=== PATIENT | female | born 1970 | race Caucasian/White ===

== ENCOUNTER 2017-05-01 11:59 | Emergency (ER) | payer BC ==
[~2017-05-01] VITALS: Ht 160 cm; Wt 94.3 kg
[~2017-05-01 11:59] MED LIST: HYDR12.55 PO; LOSA50TA6 PO; SNG10 PO
[2017-05-01 12:03] VITALS: TEMP 36.7; Ht 160 cm; Wt 94.3 kg
[2017-05-01] MEDS ORDERED: DiphenhydrAMINE HCL 50 MG/ML VIAL IV STA (12:13)
[2017-05-01] MEDS ORDERED: MoRPHine SULFATE 4 MG/ML 1 ML CARP\\VIAL IV STA (12:13)
[2017-05-01] MEDS ORDERED: SODIUM CHLORIDE 0.9% 1000ML 1,000 ML IV STA (12:13)
[2017-05-01] MEDS ORDERED: PROCHLORPERAZINE 5 MG/ML 2 ML VIAL IV STA (12:13)
[2017-05-01] MEDS ORDERED: KETOROLAC TROMETHAMINE 30 MG/ML VIAL IV STA (12:13)
[2017-05-01] MEDS ORDERED: DEXAMETHASONE SOD INJ 10 MG/ML VIAL IV ONE (12:15)
--- NOTE | 2017-05-01 12:43 | EMERGENCY ROOM VISIT NOTE ---
History Report prepared by Lucaibantonio: Karey Giron Under the Supervision of: Dr. Porfirio White M.D. First contact with patient: 12:08 Chief Complaint: HEADACHE Stated Complaint: MIGRAINE History of Present Illness The patient is a 46 year old female who presents to the Emergency Room with complaints of a constant headache starting 2 days ago. The pain is located behind the right eye radiating towards the back of the right side of head. She has neck pain but denies any neck stiffness. She has worsening pain with exposure to light and sounds. The patient has a history of migraine headaches and reports her current pain to be similar. She reports nausea but denies vomiting. She has been taking sinus headache medication and Excedrin migraine without relief. She also complains of increased shortness of breath starting a few days ago. She has a history of asthma. She reports the asthma medication sometimes exacerbate her migraine headache symptoms. The patient denies runny nose, chest pain, abdominal pain, back pain, or any other complaints. She has chronic lower extremity swelling. She denies any history of diabetes. Source of History: patient Onset: 2 days ago Position: head Modifying Factors (Worsening): other (exposure to light and sounds) Modifying Factors (Relieving): other (sinus headache medication and Excedrin migraine without relief) Associated Symptoms: + neck pain, + SOB, + nausea, No chest pain, No vomiting, No abdominal pain, No back pain Review of Systems See HPI for pertinent positives & negatives. A total of 10 systems reviewed and were otherwise negative. Past Medical & Surgical Medical Problems: (1) Bronchitis (2) Dilation and curettage (3) Headache (4) Hypertension (5) Pneumonia Family History FHx: heart disease Social History Smoking Status: Never Smoker Alcohol Use: none Marital Status: Housing Status: lives with significant other Current/Historical Medications Scheduled Hydrochlorothiazide (Hydrochlorothiazide), 12.5 MG PO DAILY Losartan Potassium (Cozaar), 50 MG PO DAILY Methylprednisolone (Medrol Dosepak), 1 PKT PO UD Montelukast Sod (Montelukast Sodium), 10 TAB PO DAILY Allergies Coded Allergies: Iodinated Contrast Media (Verified Allergy, Unknown, HIVES/ITCHING, ) Physical Exam Vital Signs Date Time Temp Pulse Resp B/P (MAP) Pulse Ox O2 Delivery O2 Flow Rate FiO2 05/01/17 14:01 73 17 119/87 98 05/01/17 12:52 58 17 137/84 100 Room Air 05/01/17 12:03 36.7 80 18 151/97 97 Room Air Physical Exam GENERAL: Patient is well appearing and in mild distress. HEAD: No acute trauma, normocephalic atraumatic ENT: Mucous membranes moist, no nasal congestion. EYES: Equal/Reactive Bilaterally, No scleral icterus, Normal ROM NECK: No nuchal rigidity, no meningismus, trachea is midline, full ROM LUNGS: No dyspnea. Clear to auscultation and equal bilaterally. No wheeze, no rhonchi. HEART: Regular rate and rhythm. No murmurs, rubs, gallops appreciated. ABDOMEN: Soft, nontender, bowel sounds positive, no masses appreciated, no peritonitis. BACK: No midline tenderness, no CVA tenderness EXTREMITIES: Normal motion all extremities, no cyanosis, no edema. NEUROLOGIC: Awake, Alert, Oriented, no acute motor or sensory deficits, no focal weakness, cranial nerves grossly intact. SKIN: No rash, no jaundice, no diaphoresis. Medical Decision & Procedures Medications Administered Medications (Trade) Dose Ordered Sig/Matthew Route Start Time Stop Time Status Last Admin Dose Admin Prochlorperazine Edisylate (Compazine Inj) 10 mg NOW STAT IV 05/01/17 12:13 05/01/17 12:14 DC 05/01/17 12:29 10 MG Diphenhydramine HCl (Benadryl Inj) 50 mg NOW STAT IV 05/01/17 12:13 05/01/17 12:14 DC 05/01/17 12:27 50 MG Morphine Sulfate (MoRPHine SULFATE INJ) 4 mg NOW STAT IV 05/01/17 12:13 05/01/17 12:14 DC 05/01/17 12:32 4 MG Ketorolac Tromethamine (Toradol Inj) 30 mg NOW STAT IV 05/01/17 12:13 05/01/17 12:14 DC 05/01/17 12:33 30 MG Dexamethasone Sodium Phosphate (Decadron Inj) 10 mg NOW ONCE IV 05/01/17 12:15 05/01/17 12:16 DC 05/01/17 12:28 10 MG Sodium Chloride 1,000 ml @ 999 mls/hr Q1H1M STAT IV 05/01/17 12:13 05/01/17 13:13 DC 05/01/17 12:26 999 MLS/HR ED Course 1208: The patient was evaluated in room B12B. A complete history and physical exam was performed. 1213: Sodium Chloride 1000 ml @ 999 mls/hr IV, Toradol Inj 30 mg IV, Morphine Sulfate 4 mg IV, Benadryl Inj 50 mg IV, Compazine Inj 10 mg IV 1215: Decadron Inj 10 mg IV 1311: I reevaluated the patient who feels better. 1358: Reevaluated the patient. Her headache has completely resolved. Discussed results and discharge instructions: She verbalized understanding and agreement. The patient is ready for discharge. Medical Decision Differential: Headache, Migraine, Cluster Headache, Seizure, Meningitis, Sinusitis, CO exposure, ICH/SAH, Infectious, Tumor, Sinus Thrombosis, Arterial Dissection, amongst other pathologies entertained. Medication Reconciliation: I attest that I have personally reviewed the patient 's current medication list. Blood pressure screening: Patient was found to have an elevated blood pressure and was referred to their primary doctor for recheck and further treatment. 46 yr old female arrives with complaint of migraine similar to previous along with some mild increase in her seasonal allergies. No evidence meningitis by examination and otherwise she is stable, looks well and is not septic. No neuro deficits and not sudden in onset. No evidence dissection nor thrombosis. She was given above with resolution of headache. With allergies and prolonged migraine will treat with steroids as outpatient as well, which may also help her asthma a bit, though currently without evidence of wheezing, etc. Stable and comfortable with discharge. Will follow up with PCP regarding hypertension. Impression Primary Impression: Headache Additional Impressions: Migraine Hypertension Sinus congestion Scribe Attestation The scribe's documentation has been prepared under my direction and personally reviewed by me in its entirety. I confirm that the note above accurately reflects all work, treatment, procedures, and medical decision making performed by me. Departure Information Dispostion Home / Self-Care Prescriptions Methylprednisolone (MEDROL DOSEPAK) 4 Mg Philip 1 PKT PO UD for 6 Days, #1 PKT Prov: Porfirio White M.D. 05/01/17 Referrals Kitty Beck D.O. (PCP) Forms HOME CARE DOCUMENTATION FORM, IMPORTANT VISIT INFORMATION Patient Instructions My [facility] Additional Instructions Keep well hydrated and avoid excessive exertion over next few days. Return if worsening headache, fevers, neck stiffness, altered mental status, increased vomiting, or other concerns. Your blood pressure was elevated during this visit. This is quite common in many people who are being evaluated in the Emergency Department for many reasons. However, it is important that you have your Primary Care Provider recheck your blood pressure and discuss whether treatment will be needed. 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 If you develop severe headaches, chest pain, weakness in arms or legs, or other concerning symptoms call 911. Problem Qualifiers
[2017-05-01] MEDS ORDERED: METH4PAK PO (13:20)
[2017-05-01 14:01] VITALS: BP 119/87; PULSE 73; O2SAT 98
[2017-10-11] MEDS ORDERED: CEPH500C2 PO (13:03)
[2017-10-11] MEDS ORDERED: HYDR-5688 PO (13:03)
== END 2017-05-01 14:02 | disposition home or self-care (01) ==
LOC: C.EDB 12:00
DX: R51 Headache (principal); G43.909 Migraine, unspecified, not intractable, without status migrainosus; I10 Essential (primary) hypertension; R09.81 Nasal congestion; Z82.49 Family history of ischemic heart disease and other diseases of the circulatory system

== ENCOUNTER → 2017-09-06 | Outpatient (CLI) | payer BC | END | disposition home or self-care (01) | LOC: C.PAPS 11:26 | PROVIDERS: ATTEND Physician Assistant | DX: Z01.419 Encounter for gynecological examination (general) (routine) without abnormal findings (principal) ==

== ENCOUNTER → 2017-10-11 | Day surgery (SDC) | payer BC ==
[2017-09-20 15:20] VITALS: Ht 158.8 cm; Wt 90.9 kg
[~2017-10-11] VITALS: Ht 158.8 cm; Wt 90.9 kg
[~2017-10-11] MED LIST changes: +ATROPINE SULFATE 0.1 MG/ML 5ML SYR IV PRN; +BUPIVACAINE 0.5 % 5 MG/1 ML MPF 30ML VIAL ONE; +CEFAZOLIN 2000MG IV PUSH 10 ML IV SCH; +CEPH500C2 PO; +DEXAMETHASONE SOD INJ 4 MG/ML VIAL ONE; +EpHEDrine SULFATE INJ 50 MG/ML AMP IV PRN; +FENTANYL CITRATE INJ 50 MCG/1 ML 2 ML VIAL IV PRN; +FENTANYL CITRATE INJ 50 MCG/1 ML 2 ML VIAL ONE; +HYDR-5688 PO; +HYDROCODONE/ACETAMOPHEN 5/325MG TAB PO PRN; +LACTATED RINGER'S 1000ML 1,000 ML IV SCH; +LIDOCAINE HCL 2% 2 ML VIAL (20MG/ML) ONE; +MIDAZOLAM HCL 1 MG/ML 2ML VIAL ONE; +ONDANSETRON INJ 2 MG/ML 2 ML VIAL IV PRN; +ONDANSETRON INJ 2 MG/ML 2 ML VIAL ONE; +PROPOFOL IV EMULSION 10 MG/ML 20 ML VIAL IV ONE; +SCOPOLAMINE 1.5 MG TDSY TD ONE; +SODIUM CHLORIDE 0.9% 1000ML 1,000 ML IV SCH
--- NOTE | 2017-10-11 12:08 | History & Physical Bridge - SC ---
H&P Re-Evaluation Bridge Note: I have examined the patient, reviewed the History & Physical and in the interval since the performance of the History & Physical I have noted the following changes of clinical significance: No changes noted
--- NOTE | 2017-10-11 13:05 | Discharge Instructions-SurgCtr ---
Discharge Instructions Date of Service Oct 11, 2017. Visit Reason for Visit: Umbilical Hernia Discharge Discharge Diagnosis / Problem: umbilical hernia repair Discharge Goals Goal(s): Decrease discomfort, Improve function, Improve disease control Activity Recommendations Activity Limitations: as noted below Lifting Limitations: no more than 25 pounds Exercise/Sports Limitations: until after follow-up appointment May Resume Sexual Activity: when tolerated Shower/Bathe: tomorrow Driving or Machine Use: resume 1 day after discharge SPECIAL CARE INSTRUCTIONS: * Cover incisions and change daily for comfort/drainage. * May use ibuprofen for pain as tolerated. * Expect some swelling and bruising. Call your doctor if: * Temperature above 101 degrees * Pain not relieved by pain medicine ordered * There is increased drainage or redness from any incision * You have any unanswered questions or concerns [phone]. FOLLOW UP VISIT: If not already scheduled, please call the office for a follow-up visit. for next week- some suture removal OFFICE PHONE NUMBER: Dr. Cook Office Anesthesia . Post Anesthesia Instructions: If you have had General Anesthesia or IV Sedation: * Do not drive today. * Resume driving when surgeon permits. * Do not make important decisions or sign legal documents today. * Call surgeon for: 1. Temperature elevations greater than 101 degrees F. 2. Uncontrollable pain. 3. Excessive bleeding. 4. Persistent nausea and vomiting. 5. Medication intolerance (nausea, vomiting or rash). * For nausea and vomiting use only clear liquids such as: tea, soda, bouillon until nausea subsides, then gradually increase diet as tolerated. * If you have any concerns or questions, call your surgeon's office. If physician is unavailable and it is an emergency, call 911 or go to the nearest emergency room. . Diet Recommendations Home Diet: resume previous diet Procedures Procedures Performed: Umbilial Hernia Open Repair Pending Studies Studies pending at discharge: no Work Instructions Return To Work: 1 week Medical Emergencies . Who to Call and When: Medical Emergencies: If at any time you feel your situation is an emergency, please call 911 immediately. . Non-Emergent Contact Non-Emergency issues call your: Primary Care Provider, Surgeon . . "Provider Documentation" section prepared by Bryan Cook. .
--- NOTE | 2017-10-11 13:06 | [facility] Operative Report ---
Operative Report Operative Date Oct 11, 2017. Pre-Operative Diagnosis Umbilical Hernia Post-Operative Diagnosis same Procedure(s) Performed Umbilial Hernia Open Repair Surgeon Dr Cook Command Post Craftsman Surgeon(s) ELICIA Marroquin Estimated Blood Loss 5 ml Findings 1.5 cm defect scar w/n sac- infarcted tissue Specimens none Anesthesia gen Complication(s) None Disposition Recovery Room / PACU I attest to the content of the Intraoperative Record and any orders documented therein. Any exceptions are noted below.
--- NOTE | 2017-10-11 13:35 | OPERATIVE REPORT ---
DATE OF OPERATION: 10/11/2017 NAME OF OPERATION: Open umbilical hernia repair. PREOPERATIVE DIAGNOSIS: Umbilical hernia. POSTOPERATIVE DIAGNOSIS: Same. STAFF SURGEON: Dr. Bryan Cook. RETURN TO FACTORY CLERK: Michelet Schaefer PA-C ANESTHESIA: General LMA. FINDINGS: The patient had a 1.5-cm hernia defect and what appeared to be scar tissue from some infarcted tissue within the hernia sac. DESCRIPTION OF PROCEDURE: The patient was brought into the operating room and placed on the operating table in the supine position. Her abdomen was prepped and draped in the usual fashion around the umbilicus. 0.5% plain Marcaine was used to anesthetize the skin and subcutaneous tissue just below the umbilicus. Incision was made, carrying dissection down, and identifying the sac. The sac had tissue most likely infarcted and longstanding nature and developing scar tissue. There were some small infarcted vessels. The skin overlying this area was somewhat bruised. The tissue was taken down. The fascia identified. The umbilicus detached from the fascia. The hernia defect was 1.5 cm in diameter. The sac and contents were sent for routine pathology. The defect was closed using interrupted 0 Ethibond suture. The deep tissue was then irrigated and reapproximated using 2-0 plain suture. The umbilicus was reattached to the subcutaneous tissue using 2-0 chromic suture and the skin reapproximated using 5-0 Prolene suture. Dressing applied and the patient transferred to recovery room in stable condition. I attest to the content of the Intraoperative Record and any orders documented therein. Any exception s are noted below.
[2017-10-11 13:54] VITALS: TEMP 36.6
--- NOTE | 2017-10-11 14:07 | Anesthesia Progress Nt - [facility] ---
Anesthesia Post Op Note Date & Time Oct 11, 2017 at 14:07 Vital Signs Pain Intensity: 1 Vital Signs Past 12 Hours Date Time Temp Pulse Resp B/P (MAP) Pulse Ox O2 Delivery O2 Flow Rate FiO2 10/11/17 13:54 36.6 88 16 114/77 (89) 95 Room Air 10/11/17 13:43 103 13 10/11/17 13:43 101 13 96 10/11/17 13:41 136/88 10/11/17 13:38 37.1 101 16 136/88 96 Mask 10/11/17 13:38 103 22 10/11/17 13:38 104 22 96 10/11/17 13:37 102 15 95 10/11/17 13:37 103 15 10/11/17 13:36 118/85 10/11/17 13:32 105 16 10/11/17 13:32 105 16 95 10/11/17 13:31 126/79 10/11/17 13:27 105 97 10/11/17 13:27 105 10/11/17 13:25 128/81 10/11/17 13:22 110 14 100 10/11/17 13:22 110 14 10/11/17 13:21 123/73 10/11/17 13:17 110 13 100 10/11/17 13:17 107 13 10/11/17 13:16 133/82 10/11/17 13:12 112 13 10/11/17 13:12 113 13 100 10/11/17 13:11 123/77 10/11/17 13:08 115/80 10/11/17 13:07 37.6 116 16 115/80 100 Mask 10 10/11/17 11:29 36.7 81 16 110/80 (90) Room Air Notes Mental Status: alert / awake / arousable, participated in evaluation Pt Amnestic to Procedure: Yes Nausea / Vomiting: adequately controlled Pain: adequately controlled Airway Patency, RR, SpO2: stable & adequate BP & HR: stable & adequate Hydration State: stable & adequate Anesthetic Complications: no major complications apparent
[2017-10-11 14:18] VITALS: BP 121/82; PULSE 91; O2SAT 96
== END | disposition home or self-care (01) ==
LOC: X.SURG 10:40
PROVIDERS: ATTEND Surgery
DX: K42.9 Umbilical hernia without obstruction or gangrene (principal)

== ENCOUNTER → 2017-10-25 | Outpatient (CLI) | payer BC ==
[~2017-10-25] MED LIST changes: -ATROPINE SULFATE 0.1 MG/ML 5ML SYR IV PRN; -BUPIVACAINE 0.5 % 5 MG/1 ML MPF 30ML VIAL ONE; -CEFAZOLIN 2000MG IV PUSH 10 ML IV SCH; -DEXAMETHASONE SOD INJ 4 MG/ML VIAL ONE; -EpHEDrine SULFATE INJ 50 MG/ML AMP IV PRN; -FENTANYL CITRATE INJ 50 MCG/1 ML 2 ML VIAL IV PRN; -FENTANYL CITRATE INJ 50 MCG/1 ML 2 ML VIAL ONE; -HYDROCODONE/ACETAMOPHEN 5/325MG TAB PO PRN; -LACTATED RINGER'S 1000ML 1,000 ML IV SCH; -LIDOCAINE HCL 2% 2 ML VIAL (20MG/ML) ONE; -MIDAZOLAM HCL 1 MG/ML 2ML VIAL ONE; -ONDANSETRON INJ 2 MG/ML 2 ML VIAL IV PRN; -ONDANSETRON INJ 2 MG/ML 2 ML VIAL ONE; -PROPOFOL IV EMULSION 10 MG/ML 20 ML VIAL IV ONE; -SCOPOLAMINE 1.5 MG TDSY TD ONE; -SODIUM CHLORIDE 0.9% 1000ML 1,000 ML IV SCH
--- NOTE | 2017-10-26 07:36 | MAMMOGRAPHY REPORT ---
BILATERAL DIGITAL DIAGNOSTIC MAMMOGRAM TOMOSYNTHESIS WITH CAD AND TARGETED BILATERAL ULTRASOUND: 10/25 CLINICAL HISTORY: 47-year-old woman presents with focal pain in the left breast. Also due for bilate ral screening mammograms. TECHNIQUE: Bilateral breast tomosynthesis in addition to standard 2D mammography was performed. Curre nt study was also evaluated with a Computer Aided Detection (CAD) system. COMPARISON: Comparison is made to exam dated: 06/19/2014 mammogram - [facility]. BREAST COMPOSITION: There are scattered areas of fibroglandular density in both breasts. FINDINGS: A square shape a marker was placed on the skin overlying the lower inner middle one third o f the left breast. No obvious new mass, asymmetry, area of distortion or suspicious calcifications a re seen in the area of pain within the left breast or elsewhere throughout the remainder of the visua lized left breast. There is stable focal asymmetry in the 3:00 anterior left breast and a few benign -appearing calcifications. There is a newly visualized 3 mm circumscribed mass in the approximate 9:00 posterior right breast an d other scattered nodularity throughout the right breast that is generally stable compared to prior m ammograms. No suspicious spiculated or irregular mass, asymmetry, area of distortion or calcificatio ns are seen in the right breast. Targeted ultrasound was performed in the area of pain pointed out by the patient in the left breast, approximate 7:00, 8:00 and 9:00 axes, 9 cm from the nipple. On ultrasound, sonographically normal ti ssue is seen without a suspicious solid or cystic mass. Additional scanning was performed in the lat eral right breast to assess for the small 3 mm mass newly visualized mammographically. No discrete s olid or cystic mass was identified from the approximate 11:00 to 7:00 axes. Although this mass has a benign appearance given the small size and circumscribed borders, given that it was not identified s onographically, a short interval follow-up right diagnostic tomosynthesis mammogram and possible repe at ultrasound is recommended to ensure stability in 6 months. IMPRESSION: ACR-BI-RADS CATEGORY 3: PROBABLY BENIGN, TARGETED ULTRASOUND ACR-BI-RADS CATEGORY 3: PRO BABLY BENIGN 1. No suspicious mammographic or targeted sonographic evidence of malignancy or other suspicious abn ormality seen in the left breast to explain the focal pain in the lower inner quadrant. Clinical fol low-up is recommended for the pain and also recommend routine left breast mammography in one year. 2. Newly visualized circumscribed 3 mm mass in the approximate 9:00 posterior right breast, without sonographic correlate identified. Although this could represent a benign cyst given the benign mammo graphic appearance, a short interval follow-up right diagnostic tomosynthesis mammogram and possible repeat ultrasound is recommended to ensure stability in 6 months. These results and recommendations were discussed with the patient at the time of the exam. She tenta tively scheduled the right breast follow-up appointment prior to leaving our department. Approximately 10% of breast cancers are not detected with mammography. A negative mammographic report should not delay biopsy if a clinically suggestive mass is present. Florecita Lock M.D. ay/:10/25/2017 15:33:05 Taste Tester: Bonnie JIMENEZ(Talat)(Efrain), [facility] letter sent: Follow Up Recommended 3 BI-RADS Code: ACR-BI-RADS Category 3: Probably Benign Ultrasound BI-RADS: ACR-BI-RADS Category 3: Pr obably Benign
== END | disposition home or self-care (01) ==
LOC: C.MAMM 08:54
PROVIDERS: ATTEND Physician Assistant
DX: N64.4 Mastodynia (principal); Z91.040 Latex allergy status; N63.10 Unspecified lump in the right breast, unspecified quadrant

== ENCOUNTER → 2018-06-26 | Outpatient (CLI) | payer OTHER ==
[~2018-06-26] MED LIST changes: -CEPH500C2 PO; +GADAVIST IV PRN; -HYDR-5688 PO
--- NOTE | 2018-06-26 07:31 | DIAGNOSTIC IMAGING REPORT ---
MRI OF THE BRAIN WITHOUT AND WITH IV CONTRAST CLINICAL HISTORY: Arachnoid cyst. COMPARISON STUDY: MRI of the brain March 31, [address] April 27, 2018. TECHNIQUE: Utilizing a 1.5 Marisela magnet and dedicated coil, multiplanar, multiecho imaging of the brain was performed pre and postcontrast administration. IV administration of 10 mL of Gadavist contrast was uneventful. FINDINGS: There are no foci of restricted diffusion. No acute intracranial hemorrhage is present. Ventricular system is normal. Flow-voids for the major intracranial vessels are present. There is no intracranial mass or pathologic enhancement. A few punctate white matter T2 hyperintense foci are noted and suggest minimal small vessel disease or sequela of migraine headaches. There is minimal signal abnormality within the cerebellar vermis. Patient is status post suboccipital craniectomy. A retrocerebellar CSF signal intensity abnormality is unchanged since head CT of April 27, 2018 and mildly increased in size since MRI of March 31, 2010. This measures 4.5 x 5.1 x 1.9 cm. On MRI of March 31, 2010, this measured 3.3 x 3.8 x 1.6 cm. A CSF signal intensity focus along the quadrigeminal plate has decreased in size since previous MRI. This now measures 2.8 x 2.5 x 3.5 cm. It previously measured 4.1 x 4.8 x 3.5 cm. IMPRESSION: 1. No acute intracranial findings. 2. Status post suboccipital craniectomy. No change since head CT of April 27, 2018. Interval decrease in size of a suspected arachnoid cyst along the quadrigeminal plate since MRI of March 31, 2010. Mild increase in size of a retrocerebellar CSF signal intensity focus since previous MRI. This may represent post surgical change or an arachnoid cyst. Electronically signed by: Jovan Haney M.D. 06/26/2018 7:30 AM Dictated Date/Time: 06/26/2018 7:16 AM
== END | disposition home or self-care (01) ==
LOC: C.MRI 06:23
PROVIDERS: ATTEND Family Medicine
DX: G93.0 Cerebral cysts (principal)

== ENCOUNTER → 2018-06-26 | Outpatient (CLI) | payer OTHER ==
[~2018-06-26] MED LIST changes: -GADAVIST IV PRN
--- NOTE | 2018-06-26 15:12 | MAMMOGRAPHY REPORT ---
UNILATERAL RIGHT DIGITAL DIAGNOSTIC MAMMOGRAM TOMOSYNTHESIS WITH CAD: 06/26/2018 CLINICAL HISTORY: 47-year-old woman presents for follow-up in the right breast for a small, 3 mm circ umscribed round to oval mass in the 9:00 posterior breast, without sonographic correlate identified. TECHNIQUE: Right breast CC and MLO 2D and tomosynthesis images were obtained. Current study was also evaluated with a Computer Aided Detection (CAD) system. COMPARISON: Comparison is made to exams dated: 10/25/2017 mammogram and 06/19/2014 mammogram - [facility]. BREAST COMPOSITION: The tissue of right breast is almost entirely fatty. FINDINGS: There is persistence of an oval versus round circumscribed 2.8 mm mass in the approximate 9 :00 posterior right breast, that is not changed in size or appearance since the 10/25/2017 mammograms. No associated calcification, angular borders or spiculation. There is other stable nodularity in t he lateral right breast. Overall, no suspicious spiculated mass, architectural distortion, asymmetry or suspicious calcifications identified in the right breast. This circumscribed 2.8 mm mass most li brittany represents a cyst/benign fibrocystic change given 6 months of stability, but another short inter marcell follow-up right mammogram and possible ultrasound is recommended to ensure longer stability. IMPRESSION: ACR-BI-RADS CATEGORY 3: PROBABLY BENIGN 1. Stable size and mammographic appearance of a benign-appearing circumscribed round to oval 2.8 mm mass in the 9:00 posterior right breast. Another six-month follow-up right diagnostic mammogram and possible ultrasound is recommended to ensure longer stability. Annual bilateral mammography will als o be due at that time. These results and recommendations were discussed with the patient at the time of the exam. Some breast cancers are not detected with mammography. A negative mammographic report should not shahid y biopsy if a clinically suggestive mass is present. Florecita Lock M.D. ay/:06/26/2018 12:09:02 Aircraft Engine Technician: Bonnie Reynoso, [facility] letter sent: Follow Up Recommended 3 BI-RADS Code: ACR-BI-RADS Category 3: Probably Benign
== END | disposition home or self-care (01) ==
LOC: C.MAMM 11:22
PROVIDERS: ATTEND Obstetrics & Gynecology
DX: N63.10 Unspecified lump in the right breast, unspecified quadrant (principal); R92.8 Other abnormal and inconclusive findings on diagnostic imaging of breast

== ENCOUNTER 2018-07-16 09:56 | Emergency (ER) | payer OTHER ==
[~2018-07-16] VITALS: Ht 160 cm; Wt 101.0 kg
[2018-07-16 09:58] VITALS: TEMP 36.8; Ht 160 cm; Wt 101.0 kg
[2018-07-16] MEDS ORDERED: KETOROLAC TROMETHAMINE 30 MG/ML VIAL IV STA (10:24)
[2018-07-16] MEDS ORDERED: DiphenhydrAMINE HCL 50 MG/ML VIAL IV STA (10:24)
[2018-07-16] MEDS ORDERED: ONDANSETRON INJ 2 MG/ML 2 ML VIAL IV STA (10:24)
[2018-07-16] MEDS ORDERED: SODIUM CHLORIDE 0.9% 1000ML 1,000 ML IV STA (10:24)
[2018-07-16] MEDS ORDERED: PROCHLORPERAZINE 5 MG/ML 2 ML VIAL IV STA (10:24)
[2018-07-16] MEDS ORDERED: DEXAMETHASONE **PF** INJ 10 MG/ML VIAL IV ONE (10:30)
[2018-07-16] MEDS ORDERED: DEXAMETHASONE SOD INJ 10 MG/ML VIAL ONE (10:35)
--- NOTE | 2018-07-16 11:45 | EMERGENCY ROOM VISIT NOTE ---
ED Visit Note First contact with patient: 10:02 CHIEF COMPLAINT: Migraine headache times 2-1/2 days HISTORY OF PRESENT ILLNESS: Patient is a 47-year-old female with past medical history she is significant for hypertension, known arachnoid cysts, followed by neurosurgery, and migraine disorder, among other medical problems who presents the emergency department for evaluation of a migraine headache that started about 2 half days ago. She could feel the headache coming on Tuesday evening and then when she woke up on Tuesday the migraine was full-blown. She reports a right periorbital headache that radiates to the occipital area with associated nausea, vomiting, photo and phonophobia. Vomiting has been fairly persistent, and she is unable to keep anything down even medications at this point. She has Maxalt at home that she has tried without relief. Patient states that this is typical of her usual migraine phenomenon, and she knows that once the migraine lasts this long she needs to come to the emergency department for further workup treatment. Patient had an MRI performed a few weeks ago, and is scheduled to see her neurosurgeon at [facility] on . Patient denies upper respiratory symptoms, fever or chills. No difficulty with balance, speech or coordination. No numbness, tingling or weakness of the extremities. REVIEW OF SYSTEMS: Review of systems as per HPI. All other systems reviewed were negative. 10 systems reviewed. PMH: Electronic medical records are reviewed and summarized as above/below. See Problem List. SOCIAL HISTORY: Patient lives at home with her spouse. Non-smoker.. PHYSICAL EXAM: Vital Signs: Reviewed Nurse's notes. General Appearance: Patient is an uncomfortable appearing 47-year-old female who is awake alert and laying in a darkened room in mild distress due to her stated complaint. Her was at the bedside. Eyes: Pupils equal round reactive to light extraocular muscles are intact, no proptosis, mild photophobia ENT: Oropharynx is clear, mucous membranes are moist, tympanic membranes are clear bilaterally, no sinus or dental tenderness Neck: Supple, no cervical lymphadenopathy, no meningismus Heart: Regular rate and rhythm, S1 and S2 Lungs: Clear to auscultation bilaterally, no wheezes Rales or rhonchi, no increased work of breathing Abdomen: Soft nontender nondistended. Normal active bowel sounds. No rebound. No guarding. Back: No midline tenderness to palpation. : No CVA tenderness to palpation. Skin: Warm, no diaphoresis, no rashes. Extremities: No cyanosis, clubbing, or edema Neurologic: Patient is awake alert, and oriented x 3. Cranial nerves 2-12 are grossly intact. Motor 5 out of 5 strength bilateral upper extremities and lower extremities. No gross sensory deficits. Reflexes are 2+ throughout. EMERGENCY DEPARTMENT COURSE: The patient was seen and evaluated as above. Her MRI 3 weeks ago was reviewed by myself. She presents the emergency department for evaluation of a migraine headache. Migraine is consistent with her normal headache phenomenon. She has a benign neurologic exam. IV lock was initiated and she was treated with a liter bolus of normal saline solution, Zofran 4 mg, Compazine 10 mg, Benadryl 50 mg, Decadron 10 mg and Toradol 30 mg IV. She was observed in the emergency department, and reassessed after roughly 1 hour at which point she reported that she was feeling much improved, rating her headache a 0/10. Patient was educated on the worrisome signs or symptoms for which she should return to the emergency department, otherwise was advised to follow-up with her primary care provider and/or neurologist and with her neurosurgeon as she has scheduled in a few weeks. Patient was discharged home with her spouse in good condition. Differential includes: acute intracranial bleed, meningitis, encephalitis, mass or mass effect, sinusitis, infection, migraine, tumor, headache, temporal arteritis and carbon monoxide exposure. Blood pressure screening: Patient was found to have a slightly elevated blood pressure due to circumstances. I do not believe that the patient requires hypertension monitoring. Medication reconciliation: I attest that I have personally reviewed the patient' s current medication list. Patient was reviewed in the [facility] Prescription Drug Monitoring Program, and there were no red flags noted. Problem List Medical Problems: (1) Arachnoid cyst Status: Chronic (2) Asthma, Unspecified Status: Chronic (3) Bronchitis Status: Resolved (4) Headache Status: Resolved (5) Hypertension Status: Chronic (6) Migraine Status: Chronic (7) Ovarian Cyst Nec/Nos Status: Chronic (8) Pneumonia Status: Resolved (9) Sinus congestion Status: Resolved Surgical Problems: (1) Dilation and curettage Status: Resolved (2) History of brain surgery Status: Resolved Current/Historical Medications Scheduled Hydrochlorothiazide (Hydrochlorothiazide), 25 MG PO QAM Losartan Potassium (Cozaar), 50 MG PO QAM Montelukast Sod (Montelukast Sodium), 10 TAB PO QAM Allergies Coded Allergies: Iodinated Diagnostic Agents (Verified Allergy, Intermediate, HIVES/ITCHING , 07/16/18) MRI Vital Signs Date Time Temp Pulse Resp B/P (MAP) Pulse Ox O2 Delivery O2 Flow Rate FiO2 07/16/18 11:55 85 16 138/91 96 07/16/18 09:58 36.8 84 18 156/99 97 Room Air Medications Administered Medications (Trade) Dose Ordered Sig/Matthew Route Start Time Stop Time Status Last Admin Dose Admin Sodium Chloride 1,000 ml @ 999 mls/hr Q1H1M STAT IV 07/16/18 10:24 07/16/18 11:24 DC 07/16/18 10:48 999 MLS/HR Ketorolac Tromethamine (Toradol Inj) 30 mg NOW STAT IV 07/16/18 10:24 07/16/18 10:26 DC 07/16/18 10:45 30 MG Diphenhydramine HCl (Benadryl Inj) 50 mg NOW STAT IV 07/16/18 10:24 07/16/18 10:26 DC 07/16/18 10:45 50 MG Prochlorperazine Edisylate (Compazine Inj) 10 mg NOW STAT IV 07/16/18 10:24 07/16/18 10:26 DC 07/16/18 10:46 10 MG Ondansetron HCl (Zofran Inj) 4 mg NOW STAT IV 07/16/18 10:24 07/16/18 10:26 DC 07/16/18 10:45 4 MG Dexamethasone Sodium Phosphate (Decadron Inj) 10 mg STK-MED ONCE .ROUTE 07/16/18 10:35 07/16/18 10:36 DC 07/16/18 10:46 10 MG Departure Information Impression Primary Impression: Migraine Referrals Kitty Beck D.O. (PCP) Patient Instructions My [facility] Additional Instructions DO NOT drive, drink alcohol, operate machinery, or perform dangerous activities today. You were given medications in the ER that can affect your ability to safely function or operate a vehicle. Rest today in a quiet, peaceful, dark environment and get a full 8-10 hrs of sleep tonight. Avoid loud noises, smoke/smoking, alcohol, bright lights, stress, or physical exertion today to minimize the chance the headache may return. Continue current medications. Return to the ER for passing out, worsening headache, vision problems, neck stiffness/pain, fevers, vomiting, worsening of your condition, or as needed. Follow up with your primary physician in 2-3 days for a recheck of your current condition.
[2018-07-16 11:55] VITALS: BP 138/91; PULSE 85; O2SAT 96
== END 2018-07-16 11:56 | disposition home or self-care (01) ==
LOC: C.EDB 09:58
DX: G43.909 Migraine, unspecified, not intractable, without status migrainosus (principal); I10 Essential (primary) hypertension; J45.909 Unspecified asthma, uncomplicated; Z91.041 Radiographic dye allergy status